=== PATIENT | female | born 1950 ===

== ENCOUNTER 2016-10-22 07:54 | Day surgery (SDC) | payer BC ==
[~2016-10-22] VITALS: Ht 162.6 cm; Wt 80.9 kg
[~2016-10-22 07:54] MED LIST: ACETAMINOPHEN 500 MG TAB (TYLENOL) PO PRN; CHONDROITIN/HYALURONATE (DISCOVISC) 1 ML SYR IO ONE; PHENYLEPHRINE/KETOROLAC 4 ML VIAL IO ONE; SODIUM CHLORIDE FLUSH 3 ML SYR IV PRN; TETRACAINE 0.5% OPHTHALMIC SOLUTION 4 ML BTL ONE; diphenhydrAMINE 50 MG/ML INJ (BENADRYL) IV PRN
[2016-10-22 08:04] VITALS: BP 105/61
[2016-10-22] MEDS: LIDOCAINE 3.5% OPHTH GEL (AKTEN) 1 ML BTL OS SCH ×4 (08:25→08:57)
[2016-10-22] MEDS: HOME MEDICATION OS SCH ×3 (08:35→08:57)
[2016-10-22] MEDS: CATARACT PRE-OP EYE DROPS 0.5ML SYRINGE OS SCH ×3 (08:35→08:57)
[2016-10-22] MEDS ORDERED: NALBUPHINE 10 MG/ML (NUBAIN) 1 ML AMP ONE (09:16)
[2016-10-22] MEDS ORDERED: MIDAZOLAM 2 MG/2 ML (VERSED) VIAL ONE (09:16)
[2016-10-22] MEDS ORDERED: CHONDROITIN/HYALURONATE (VISCOAT) 0.5 ML SYR IO ONE (09:24)
[2016-10-22] MEDS ORDERED: ACETYLCHOLINE CHLORIDE 20 MG/2 ML KIT IO ONE (09:39)
[2016-10-22 10:03] VITALS: BP 118/72
--- NOTE | 2016-10-22 10:31 | NUR ---
PATIENT REPORTS FEELING BETTER SINCE BEING IN ASC FROM OR. PATIENT PALE AND DIAPHORETIC AT THIS TIME. O2 SAT 99% ON RA. PATIENT REPORTS STILL FEELING SOMEWHAT SHORT OF BREATH AND LIKE THE ROOM IS SPINNING. STATES SHE DOES HAVE ANXIETY. ABLE TO DRINK WATER AND FEELS LIKE IT IS NOT MAKING HER NAUSEOUS. O2 APPLIED @2L NC AT THIS TIME.
[2016-10-22 11:13] VITALS: BP 115/70
== END 2016-10-22 11:35 | disposition home or self-care (01) ==
LOC: ASC 07:54
PROVIDERS: ATTEND Ophthalmology
DX: H25.12 Age-related nuclear cataract, left eye (principal); E11.9 Type 2 diabetes mellitus without complications; I10 Essential (primary) hypertension; Z79.84 Long term (current) use of oral hypoglycemic drugs
CPT/HCPCS: 36415; 66982; 84132; C9447; J2250; J2300; V2632